=== PATIENT | male | born 1960 | race Caucasian/White ===

== ENCOUNTER → 2017-07-01 | Outpatient (CLI) | payer OTHER | LOC: BMCIMAGING 14:44 | PROVIDERS: ATTEND Internal Medicine | DX: M19.071 Primary osteoarthritis, right ankle and foot (principal); R93.6 Abnormal findings on diagnostic imaging of limbs ==

== ENCOUNTER 2018-10-12 15:33 | Emergency (ER) | payer OTHER ==
--- NOTE | 2018-10-12 16:44 | EDPHY ---
H & P Time Seen by Provider: 10/12/18 16:07 HPI/ROS: CHIEF COMPLAINT: Abdominal pain HISTORY OF PRESENT ILLNESS: Patient had 2 episodes of diverticulitis in the last year, the 1st 1 in early November in the 2nd 1 in May. He was diagnosed by CT scan for the 1st one, was seen at urgent care for the 2nd treated with empiric antibiotic therapy and got better. He was feeling really well yesterday and went cross country skiing but started having abdominal pain in the left lower quadrant starting around midnight or 1:[address] here going over bumps made it feel worse. Associated with a little bit diarrhea but no vomiting or nausea or fever. Feels like it is a little bit more difficult to urinate but no dysuria or hematuria. Normal oral intake. He says it feels identical to previous episodes of diverticulitis. REVIEW OF SYSTEMS: Eye: no change in vision ENT: no sore throat Cardiac: no chest pain or syncope Pulmonary: no cough or SOB Abdomen: HPI Musculoskeletal: no back pain Skin: no rash Neuro: no headache Constitutional: no fever : HPI A comprehensive 10 point review of systems is otherwise negative aside from elements mentioned in the history of present illness. PAST MEDICAL HISTORY: Diverticulitis twice as described in the HPI. Hernia and vasectomy, pyloric stenosis, hypothyroid, hypertension Social history: Nonsmoker General Appearance: Alert and conversant, cooperative. Eyes: No scleral icterus. ENT, Mouth: Normal mucous membranes. Respiratory: Normal respiratory effort, breath sounds equal, lungs are clear to auscultation. Cardiovascular: Regular rate and rhythm. Gastrointestinal: Left lower abdominal tenderness greater than right, bowel sounds present, no hernia, no rebound or guarding. Neurological: Alert, face symmetric, normal motor and sensory in extremities. Skin: Warm and dry, no rashes. Musculoskeletal: No peripheral edema. Psychiatric: Not agitated. Emergency Department course/MDM: CT scanning versus empiric treatment discussed with the patient. He would prefer to avoid imaging both for cost and radiation, and would prefer to be treated empirically for diverticulitis. I think this is reasonable, although I emphasized to him that we do not have certainty in the diagnosis. He states he is comfortable with that. Levaquin and Flagyl discussed and consented. I think benefit outweighs risk for these medications in the treatment of diverticulitis. He is given appendicitis discharge precautions. TSH is performed because he says it is do for him to have it checked. He does not currently have symptoms of hypo or hyperthyroid. Bladder ultrasound Indication: Urinary symptoms with lower abdominal pain Bladder was scanned by myself, does not have urinary retention or large postvoid residual. Procedure performed by myself and images archived. Smoking Status: Never smoked Constitutional: Initial Vital Signs Temperature (C) 37.1 C 10/12/18 15:36 Heart Rate 83 10/12/18 15:36 Respiratory Rate 16 10/12/18 15:36 Blood Pressure 135/88 H 10/12/18 15:36 O2 Sat (%) 93 10/12/18 15:36 O2 Delivery Mode Room Air Allergies/Adverse Reactions: No Known Allergies Allergy (Verified 10/12/18 15:40) Home Medications: Medication Instructions Recorded Levothyroxine [Synthroid 50 mcg 50 mcg PO DAILY06 11/07/15 (*)] Amlodipine Besylate 10/12/18 levOFLOXACIN [Levaquin] 750 mg PO DAILY #9 tab 10/12/18 metroNIDAZOLE [Metronidazole] 500 mg PO Q8H #30 tab 10/12/18 MDM/Departure - MDM Medications Given: Discontinued Medications Levofloxacin/Dextrose (Levaquin 750 Mg (Premix)) 150 mls @ 100 mls/hr IV EDNOW ONE PRN Reason: Protocol Stop: 10/12/18 18:04 Last Admin: 10/12/18 16:48 Dose: 150 mls Metronidazole (Flagyl) 500 mg PO EDNOW ONE PRN Reason: Protocol Stop: 10/12/18 17:50 Last Admin: 10/12/18 18:01 Dose: 500 mg Differential Diagnosis: Differential considered including but not limited to bowel obstruction, appendicitis, hernia, diverticulitis, intestinal perforation or abscess. - Depart Disposition: Home, Routine, Self-Care Clinical Impression: Abdominal pain Qualifiers: Abdominal location: left lower quadrant Qualified Code(s): R10.32 - Left lower quadrant pain Diverticulitis large intestine Qualifiers: Diverticulitis bleeding: without bleeding Diverticulitis complication: without perforation or abscess Qualified Code(s): K57.32 - Diverticulitis of large intestine without perforation or abscess without bleeding Condition: Good Instructions: Diverticulitis (ED), Acute Abdominal Pain (ED) Additional Instructions: normal TSH 1.840 You need to return to the emergency department immediately if you develop worsening or severe pain, fever, vomiting or you are not completely better in 8- 12 hours. Prescriptions: levOFLOXACIN [Levaquin] 750 mg PO DAILY #9 tab metroNIDAZOLE [Metronidazole] 500 mg PO Q8H #30 tab Referrals: Seth Villa MD [Primary Care Provider] - As per Instructions
[2018-10-12] MEDS ORDERED: metroNIDAZOLE 500 MG TAB PO ONE (17:49)
[2018-10-12 18:00] VITALS: BP 109/70
== END 2018-10-12 18:29 | disposition home or self-care (01) ==
DX: K57.32 Diverticulitis of large intestine without perforation or abscess without bleeding (principal); I10 Essential (primary) hypertension; E03.9 Hypothyroidism, unspecified
CPT/HCPCS: 96365; J1956